=== PATIENT | male | born 1995 | race Caucasian/White ===

== ENCOUNTER 2022-04-30 16:15 | Emergency (ER) | payer SELFPAY ==
[~2022-04-30] VITALS: Ht 157.5 cm; Wt 54.0 kg
[2022-04-30 16:24] VITALS: BP 130/94
[2022-04-30 17:02] LABS: BASOPHILS % 0.8 % (0.0-2.0); EOSINOPHILS % 1.1 % (0.0-5.0); HEMATOCRIT. 42.4 % (42.0-52.0); HEMOGLOBIN. 14.5 g/dL (14.0-18.0); MEAN CORPUSCULAR HEMOGLOBIN 31.5 pg (28.0-32.0); MEAN CORPUSCULAR VOLUME 92.4 fL (80.0-94.0); MEAN PLATELET VOLUME 9.5 fl (7.4-10.4); MONOCYTES % 5.2 % (2.0-8.0); NEUTROPHILS % 57.9 % (40.0-76.0); PLATELET 236 x1000/uL (130-400); RED BLOOD CELL COUNT 4.59 mill/uL (4.7-6.1); RED CELL DISTRIBUTION WIDTH 13.5 % (11.6-14.6)
[2022-04-30 17:18] LABS: CHLORIDE 103 mEq/L (98-107)
== END 2022-05-01 05:56 | disposition left against medical advice (07) ==
LOC: ER 16:15
DX: R07.89 Other chest pain (principal)
CPT/HCPCS: 36415; 80053; 83735; 85025; 93005; 99284